=== PATIENT | male | born 1990 | race African-American/Black ===

== ENCOUNTER 2017-01-26 06:27 | Emergency (ER) | payer OTHER ==
[~2017-01-26] VITALS: Ht 172.7 cm; Wt 77.1 kg
[2017-01-26] MEDS ORDERED: BACITRACIN TOP OINT 1 UD PKG TOP ONE (08:00)
[2017-01-26] MEDS ORDERED: LIDOCAINE 2%HCL (LOCAL ANESTH.) INJ 20ML MDV ID ONE (08:00)
[2017-01-26] MEDS ORDERED: MORPHINE SULFATE 4 MG/ML SYRG IV ONE (08:00)
[2017-01-26] MEDS ORDERED: PROMETHAZINE HCL 25 MG/ML 1ML IV ONE (08:00)
[2017-01-26] MEDS ORDERED: TETANUS-DIPTH-ACEL PERTUSSIS 0.5ML SYRG IM ONE (08:00)
[2017-01-26] MEDS ORDERED: cefTRIAXone 1GM/50ML D5W 50 ML IV ONE (08:45)
[2017-01-26 09:17] VITALS: BP 129/84
== END 2017-01-26 10:21 | disposition home or self-care (01) ==
LOC: ER 06:27 → EDBD 06:27 → ER 10:21
DX: S01.511A Laceration without foreign body of lip, initial encounter (principal); S02.2XXA Fracture of nasal bones, initial encounter for closed fracture; S03.2XXA Dislocation of tooth, initial encounter; J45.909 Unspecified asthma, uncomplicated; F17.210 Nicotine dependence, cigarettes, uncomplicated; Y08.89XA Assault by other specified means, initial encounter; Y93.89 Activity, other specified; Y99.8 Other external cause status; Y92.89 Other specified places as the place of occurrence of the external cause
CPT/HCPCS: 12052; 70486; 90471; 90715; 96365; 96375; 99284; J0696; J2270; J2550